=== PATIENT | female | born 1980 | race Caucasian/White ===

== ENCOUNTER 2018-07-03 05:20 | Day surgery (SDC) | payer BC, SELFPAY ==
[2018-07-03] VITALS (10 sets, daily range): BP systolic 114–153; BP diastolic 69–97; PULSE 74–106; RESP 16–18; TEMP 35.9–37.2; O2SAT 90–98; BMI 48.4
[2018-07-03] MEDS: Celecoxib 200 MG Capsule 400 MG PO (06:06)
[2018-07-03] MEDS: Gabapentin 600 MG Tablet PO (06:07)
[2018-07-03] MEDS: Acetaminophen 500 MG Tablet 1000 MG PO ×2 (06:07→12:52)
[2018-07-03] MEDS: Phenazopyridine 95 MG Tablet 190 MG PO (06:08)
[2018-07-03] MEDS: Enoxaparin 40 MG/0.4 ML Syringe SC (06:09)
[2018-07-03 06:26] LABS: Bedside Glucose 127 mg/dL (70-110)
[2018-07-03 06:27] LABS: Hematocrit 39.7 % (37-47); Hemoglobin 12.9 g/dl (12.0-15.0); Mean Corp Hgb Conc 32.5 g/gl (32-36); Mean Corpuscular Hgb 29.5 pg (27.0-32.0); Mean Corpuscular Volume 90.8 fL (81-99); Mean Platelet Vol. 9.5 fl (6.2-12.0); Platelet Count 321 K/mm3 (150-450); RBC Distribution Width CV 12.8 % (11.6-14.6); RBC Distribution Width SD 42.4 fl (35.1-43.9); Red Blood Count 4.37 M/mm3 (4.2-5.4); White Blood Count 8.7 K/mm3 (4.4-11.0)
[2018-07-03 06:28] LABS: Scan Indicated on CBC? Y/N NO
[2018-07-03] MEDS: Magnesium Sulfate 4gm/100mL 4 GM/100 ML IV.SOLN. IV (06:36)
[2018-07-03] MEDS: Lactated Ringers 1,000 ML 70 ML IV (06:36)
--- NOTE | 2018-07-03 07:30 | HYST_PTH ---
PATIENT: INOCENCIA KNOX LOC: [facility] – [place] U#:[id number] AGE/SX: 38/F ROOM: RE07/03/[address]: Dr. Mikayla Calvillo MD : [id number] BED: DIS: 07/03/2018 SPEC #: [id number] RECD: 07/03/18 10:16 STATUS: NORA AYESHA #: [id number] PAOLA: 07/03/18 07:[address]: Mikayla Calvillo DEPT: SURGICAL PATHOLOGY RECD BY: Jaime Bennett ENTERED: 07/03/18 11:13 SP TYPE: HYSTERECT OTHR DR: Dr. Lian Issa MD Tissues: Uterus, NOS Procedures: Surgery Specimen Level V HEADER OPERATION: ERAS, total laparoscopic hysterectomy, bilateral salpingectomy PRE-OP DIAGNOSIS: Menorrhagia TISSUE SUBMITTED: Uterus, cervix, bilateral fallopian tubes MICROSCOPIC DIAGNOSIS Uterus, hysterectomy: Cervix - minimal chronic inflammation. Endometrium - proliferative endometrium. Myometrium - leiomyomas and superficial adenomyosis. One fallopian tube with paratubal cyst. The other fallopian tube with no pathologic change. AM:lio 07/04/18 MICROSCOPIC DESCRIPTION Slides are reviewed. GROSS DESCRIPTION Received in fixative is one container labeled with the patient's name and designated uterus. The specimen consists of a uterus with attached cervix and two detached fallopian tubes. The uterus with cervix measures 9.5 x 7 x 4.5 cm and weighs 96 gm. The ectocervix is grossly unremarkable. The cervical os is round in contour. The endocervical canal measures 3.3 cm in length and is grossly unremarkable. The triangular endometrial cavity measures 4 x 3 cm. The velvety, light ruby endometrium measures up to 0.2 cm in thickness. The myometrium measures 2 cm in average thickness and contains a single ruby-white nodule in the subserosa measuring 1.3 cm in greatest dimension and grossly consists of a leiomyoma. Two Filshie-type clips are attached to the uterus and are intact. The right and left fallopian tubes are similar in appearance with normal appearing fimbriated ends. Both have an average length of 3.2 cm and average diameters of 0.5 cm. One fallopian tube contains a smooth, glistening cyst measuring 6 mm and containing clear fluid. [employer] sections are submitted in nine cassettes as follows: 1 - anterior cervix, 2 - posterior cervix, 3 & 4 - anterior uterine wall, 5 & 6 - posterior uterine wall, 7 - leiomyoma, 8 - one fallopian tube and paratubal cyst, 9 - the other fallopian tube. / AM:lio 07/03/18 TC:1 CPT: 89673
[2018-07-03] MEDS: Bupivacaine 0.5% PF 10 ML VIAL (08:15)
--- NOTE | 2018-07-03 10:09 | DCINST_ITS ---
Discharge Diet: No Restrictions Discharge Activity: Return to Normal Activity, May Not Drive - while taking narcotic pain medications., May Shower, May Take a Tub Bath - In 4-week May resume sexual activity in: 8 weeks Call your doctor if your incision/area has: Continuous Slow Oozing, Sudden Increased Bleeding, Increased Pain/ Swelling, Increased Redness, Foul Smelling Discharge Call your doctor if you observe: Fever of 101 or Higher, Inability to urinate, Inability to have a bowel movement, Using more than one pad per hour Cleanse incision/area with: Soap & Water, - - Patient has skin glue. It can get wet. Allergies/Adverse Reactions: Allergies hydrocodone [From Vicodin] Allergy (Verified 06/12/18 13:59) Vomiting oxycodone Allergy (Verified 06/12/18 13:59) Vomiting tramadol [From Ultram] Allergy (Verified 06/12/18 13:59) Vomiting Medications to take at Discharge RX: Ibuprofen [Motrin] 200 mg PO Q6H PRN PRN 06/12/18 RX: Lisinopril [Zestril] 10 mg PO DAILY 06/12/18 Primary Care Physician: Lian Issa MD [Primary Care Provider] - Test Results: Test results from this visit will be discussed in further detail at your follow- up appointment, if applicable. Please Follow Up With: Mikayla Calvillo MD - [phone] When: 1-2 and 6 weeks or as needed
--- NOTE | 2018-07-03 10:10 | PCM.OPRPT ---
Report of Operation Date of Procedure: 07/03/18 Pre-Operative Diagnosis: menorrhagia, dysmenorrhea, uterine fibroid Post-Operative Diagnosis: Same Surgery/Procedure Performed:: TLH, bilateral salpingectomy, cystoscopy digester cook: Park Buckner digester cook: Noemy john [id number] Type of Anesthesia:: General Anesthesiologist: Yoan Howe Special Medications: None Specimen's removed: There is, cervix bilateral tubes Drains: Cruz Estimated Blood Loss (mL): 250 cc Fluids Replaced: 1600 cc LR Description of Procedure: The patient was taken to the operating room where she was prepped and draped in the dorsal lithotomy position. Her arms were tucked to the side and padded and her legs were placed in the yellowfin stirrups. Care was taken to ensure that she was placed in a neurologically safe and neutral position. Patient was secured with a piggyback. A weighted speculum was placed in the vagina and the anterior lip of the cervix was grasped with a single-tooth tenaculum. The cervix sounded to 8 centimeters. 2-0 Vicryl sutures were secured to the cervix at 3 and 9:00. The NADEGE cup medium size was placed into the cervix and the balloon inflated. The stay sutures were placed through the cup and secured down to the cervix. Once the uterine manipulator was secured to the cervix the Cruz catheter was placed to straight drain. Attention was turned to the abdominal portion of the case. Before skin incisions were made they were infiltrated with 0.5% Marcaine solution for local anesthetic. A 5 mm intraumbilical incision was made and while tenting the anterior abdominal wall up with towel clamps a 5 mm blade less trocar and sleeve were advanced directly into the peritoneal cavity. Peritoneal placement was confirmed with the laparoscope the pneumoperitoneum was created, and the underlying abdominal contents were intact. The patient was placed in Trendelenburg and the above findings were noted. Right and left lateral 5 mm trochars were placed under direct visualization without difficulty. Approximately a 3 x 3 cm area of omental adhesions to the anterior abdominal wall near the umbilicus were taken down with the LigaSure. The antimesenteric portion of the tube was clamped sealed and transected serially on both sides with the LigaSure device. The round ligaments were clamped sealed and transected and a window was made in the peritoneum. The utero-ovarian ligaments were then clamped sealed and transected with the LigaSure device and the pedicles were hemostatic The bladder flap was dissected down with the LigaSure device and blunt dissection and the uterine arteries were then skeletonized. We had to constantly retract back redundant tissue due to the patient's body mass index in order to visualize the pedicles and the bladder flap. There were some adhesions of the bladder flap to the anterior abdominal wall from her previous C-sections. We are able to make steady progress, it was just very difficult to manipulate the camera and the instruments in the uterus because of the patient's habitus. The uterine arteries were clamped sealed and transected on both sides with the LigaSure device. Then along the cardinal ligament uterine arteries adjacent to the cervix were clamped sealed and transected with the LigaSure device to move them away from the vaginal cuff angle. At this point the pedicles were all examined and found to be hemostatic. The bladder flap was rechecked and found to be adequately down. The monopolar tip of the LigaSure device was then used to enter the anterior vagina. The vaginal manipulator cup was noted in the vaginal colpotomy incision was made circumferentially around the cup. When the 3 and 9:00 positions of the cervicovaginal junction were reached these were clamped sealed and transected with the LigaSure device to secure any small remaining vessels. There was a significant amount of bleeding from an artery on the anterior left side of the vaginal cuff. We attempted several times to isolate this vessel and secured with the LigaSure but were unable to do so. We get hemo-locks and after several attempts were able to finally isolate the vessel above and secure it with the Hemo-lock clip. At this point the pedicles were hemostatic from above and attention was turned to the vaginal portion of the case again. The uterus was brought intact out through the vaginal colpotomy incision along with the tubes There was some bleeding from the left vaginal cuff angle and this was grasped with an Allis clamp. Vaginal angle sutures were placed on both sides with 0 Vicryl sutures and care was taken to ensure that the uterosacral ligament was secured into this stitch. The remainder the vagina was then closed horizontally with interrupted 0 Vicryl sutures. The cuff was hemostatic vaginally. The Cruz catheter was removed and a cystoscopy was performed. The bladder appeared normal and was intact. Both ureteral orifices were noted and both ureteral jets were seen. The cystoscope was removed and the Cruz catheter was placed back to straight drain. A sponge stick was placed in the vagina to help place traction against the vaginal cuff and the pneumoperitoneum was re-created. The suction press operator heavy duty was used to remove any blood and clots from the peritoneal cavity. The pedicles were reexamined and found to be hemostatic. The vaginal cuff was hemostatic. The area where there had been previous bleeding was hemostatic. It was examined closely. Some Wild was placed over the area no bleeding through the Wild was noted. Some Wild was placed over the vaginal cuff. The right and left lateral ports were taken out and the sites were hemostatic. The pneumoperitoneum was released and even under low pressure there was no bleeding of any of the pedicles are vaginal cuff. The umbilical port was removed. The umbilical skin incisions were closed with Monocryl suture and skin glue by Dr. Payne. The vaginal instruments were removed by me and a vaginal sweep was completed by me. The surgery was performed by me with assistance other than the portions dictated as above. There were no qualified residents available for this procedure. All sponge lap and needle counts were correct and the patient was transferred to the recovery room in stable condition. Grafts/Implants Used: None - Complications None - Admit VTE Documentation VTE Present on Admission: No VTE Mechan Device Prophylaxis: [facility] [place]'s VTE Pharm Prophylaxis ordered?: Yes
[2018-07-03 10:40] LABS: Bedside Glucose 167 mg/dL (70-110)
[2018-07-03] MEDS: Ketorolac 30 MG/ML Syringe IV (10:41)
[2018-07-03 13:09] LABS: Hematocrit 38.1 % (37-47); Hemoglobin 12.7 g/dl (12.0-15.0); Mean Corp Hgb Conc 33.3 g/gl (32-36); Mean Corpuscular Hgb 30.1 pg (27.0-32.0); Mean Corpuscular Volume 90.3 fL (81-99); Mean Platelet Vol. 9.8 fl (6.2-12.0); Platelet Count 331 K/mm3 (150-450); RBC Distribution Width CV 12.4 % (11.6-14.6); RBC Distribution Width SD 40.4 fl (35.1-43.9); Red Blood Count 4.22 M/mm3 (4.2-5.4); White Blood Count 13.5 K/mm3 (4.4-11.0)
[2018-07-03 13:10] LABS: Scan Indicated on CBC? Y/N NO
[2018-07-03] MEDS: Ondansetron 4 MG/2 ML Vial IV (15:42)
[2018-07-03] MEDS: HYDROmorphone 1 MG/ML Syringe IV (15:42)
== END 2018-07-03 16:30 | disposition home or self-care (01) ==
LOC: SDC 05:21 → AC 05:24
PROVIDERS: Family Provider Internal Medicine; PCP Internal Medicine; Referring Provider Obstetrics & Gynecology; Visit Provider Obstetrics & Gynecology
PROC: 0UT94ZZ Resection of Uterus, Percutaneous Endoscopic Approach (ICD-10-PCS; principal; 2018-07-03 07:10)
DX: N80.0 Endometriosis of uterus (principal); D25.9 Leiomyoma of uterus, unspecified; N83.8 Other noninflammatory disorders of ovary, fallopian tube and broad ligament; N72 Inflammatory disease of cervix uteri; D68.4 Acquired coagulation factor deficiency; I10 Essential (primary) hypertension; K58.9 Irritable bowel syndrome, unspecified; Z86.718 Personal history of other venous thrombosis and embolism; Z86.32 Personal history of gestational diabetes
CPT/HCPCS: 58571; 36415; 82962; 85027; 86850; 86900; 88307; J7120; J2405